=== PATIENT | male | born 1975 | race Caucasian/White ===

== ENCOUNTER 2016-10-31 11:24 | Emergency (ER) | payer OTHER ==
[2016-10-31 12:16] LABS: BASOPHIL 0.2 % (0-2); EOSINOPHIL 0.2 % (0-5); HCT 50.3 % (42.0-52.0); HGB 17.2 g/dl (13.2-18.0); LYMPHOCYTE 6.2 % (15-48); MCH 33.4 pg (25.0-31.0); MCHC 34.2 g/dL (32.0-36.0); MCV 97.7 fL (78.0-100.0); MONOCYTE 5.9 % (0-12); MPV 9.6 fL (6.0-9.5); NEUTROPHIL 87.5 % (41-80); PLT 281 K/uL (150-400); RBC 5.15 M/uL (4.70-6.00); RDW 14.2 % (11.5-14.0)
[2016-10-31 12:17] LABS: WBC 19.4 K/uL (4.0-10.5)
[2016-10-31 12:32] LABS: BILIRUBIN 1+ mg/dL (NEGATIVE); BLOOD TRACE-LYSED Ery/uL (NEGATIVE); CLARITY CLEAR (CLEAR); COLOR YELLOW (YELLOW); GLUCOSE (U) NORMAL (NORMAL); KETONE (U) 1+ (SMALL) mg/dL (NEGATIVE); LEUKOCYTES NEGATIVE Leu/uL (NEGATIVE); NITRITE NEGATIVE (NEGATIVE); PROTEIN NEGATIVE (NEGATIVE); SPECIFIC GRAVITY >=1.030 (1.001-1.030); UROBILINOGEN 0.2 mg/dL (0.2-1.0); pH 5.5 (5.0-9.0)
[2016-10-31 12:39] LABS: SQUAMOUS EPITHELIAL CELLS RARE; URINARY RBC RARE
[2016-10-31 12:44] LABS: AMPHETAMINES POSITIVE (NEGATIVE); BARBITURATES NEGATIVE (NEGATIVE); BENZODIAZEPINES NEGATIVE (NEGATIVE); COCAINE NEGATIVE (NEGATIVE); MARIJUANA (THC) NEGATIVE (NEGATIVE); TRICYCLIC ANTIDEPRESSANT NEGATIVE (NEGATIVE)
[2016-10-31 12:45] LABS: METHADONE NEGATIVE (NEGATIVE)
[2016-10-31 13:39] LABS: BILIRUBIN - TOTAL 0.6 mg/dL (0.1-1.0); CREATININE 0.7 mg/dL (0.7-1.2); GLOBULIN (CALCULATION) 2.5 g/dL (2.2-4.2); TOTAL PROTEIN 7.5 g/dL (6.4-8.3)
== END 2016-10-31 14:40 | disposition home or self-care (01) ==
LOC: FER 11:24
PROVIDERS: Emergency Medicine
DX: J44.1 Chronic obstructive pulmonary disease with (acute) exacerbation (principal); F17.210 Nicotine dependence, cigarettes, uncomplicated; Z88.5 Allergy status to narcotic agent
CPT/HCPCS: 36415; 71020; 80053; 80305; 81001; 85025; 87804; 87899; 93005; 94640; J2930